=== PATIENT | female | born 1955 | race Caucasian/White ===

== ENCOUNTER 2021-02-02 10:11 | Outpatient (REF) | payer OTHER, SELFPAY ==
[2021-02-02 13:57] LABS: MANUAL DIFF FLAG NO
[2021-02-02 14:11] LABS: Basophils Absolute Auto 0.1 X10*3/uL (0.0-0.2); Basophils Percent Auto 0.9 % (0-2); Eosinophils Absolute Auto 0.4 X10*3/uL (0.0-0.4); Eosinophils Percent Auto 7.1 % (0-4); Hematocrit 41.6 % (37.0-47.0); Hemoglobin 13.3 g/dl (12.0-16.0); Imm Gran Abs Auto 0.01 X10*3/uL (0.00-0.03); Imm Gran Pct Auto 0.2 % (0.0-0.4); Lymphocytes Absolute Auto 1.4 X10*3/uL (1.2-4.9); Lymphocytes Percent Auto 26.2 % (20-40); Mean Corpuscular Hemoglobin 28.6 pg (27.0-33.0); Mean Corpuscular Volume 89.5 fL (80.0-98.0); Mean Platelet Volume 10.9 fL (9.4-12.3); Monocytes Absolute Auto 0.6 X10*3/uL (0.1-1.2); Monocytes Percent Auto 11.4 % (2-11); Neutrophils Absolute Auto 2.9 x10*3/uL (2.0-8.3); Neutrophils Percent Auto 54.2 % (45-73); Platelet Count 241 X10*3/uL (160-400); Red Blood Count 4.65 X10*6/uL (4.20-5.50); Red Cell Distribution Width 13.6 % (11.0-16.0); White Blood Count 5.4 X10*3/uL (4.8-10.8)
[2021-02-02 14:17] LABS: INTERNATIONAL NORM RATIO 0.9 (0.9-1.1); Prothrombin Time 10.4 SEC (9.9-13.0)
[2021-02-02 14:19] LABS: Partial Thromboplastin Time 37.6 SEC (24.1-38.0)
[2021-02-02 14:29] LABS: Alanine Aminotransferase 41 U/L (0-31); Albumin Level 4.2 g/dL (3.5-5.0); Alkaline Phosphatase 336 U/L (39-117); Aspartate Amino Transferase 48 U/L (5-31); Bilirubin Direct 0.2 mg/dL (0.0-0.5); Bilirubin Total 0.6 mg/dL (0.0-1.0); Gamma Glutamyl Transpeptidase 593 U/L (7-33); Total Protein 7.4 g/dL (6.5-8.0)
[2021-02-04 20:27] LABS: Anti Nuclear Antibody Screen POSITIVE (NEGATIVE)
[2021-02-07 13:41] LABS: Smooth Muscle Antibody 21 U (<20)
[2021-02-12 15:56] LABS: Mitochondrial Antibodies POSITIVE (NEGATIVE)
== END 2021-02-02 10:12 | disposition home or self-care (01) ==
LOC: HO.10HDL 10:11
PROVIDERS: Visit Provider Internal Medicine
DX: R74.8 Abnormal levels of other serum enzymes (principal); K75.4 Autoimmune hepatitis
CPT/HCPCS: 36415; 80076; 82977; 85025; 85610; 85730; 86038; 86039; 86255; 86256

== ENCOUNTER 2021-03-02 08:05 | Day surgery (SDC) | payer OTHER, SELFPAY ==
--- NOTE | ~2021-03-02 | US_ITS ---
EXAMINATION: US COMPLETE ABDOMEN WITH LIVER ELASTOGRAPHY CLINICAL INFORMATION: Elevated alkaline phosphatase. Autoimmune hepatitis. COMPARISON: March 12, 2008 TECHNIQUE: Real-time imaging of the abdominal viscera. Noninvasive ultrasound liver fibrosis assessment is performed using Bjorn ElastPQ point quantification shear wave elastography (2D-SWE) with a C5-2 MHz transducer. Multiple elastography samples are obtained. FINDINGS: PANCREAS: Normal. The visualized pancreatic head and body are normal in appearance. The remainder of the pancreas is obscured from visualization by the overlying bowel gas. ABDOMINAL AORTA: The proximal, middle, and distal aortic segments are normal in caliber. Calcified plaque is seen throughout. INFERIOR VENA CAVA: Visualized portions are normal. LIVER: There is some diffusely increased echogenicity present consistent with hepatocellular disease/fatty infiltration. The right lobe measures 13.0 cm in length. The left lobe measures 10.9 cm in length. Portal flow is hepatopedal Shear wave liver elastography median stiffness is 1.7 m/s (reference: normal median stiffness is 1.3 m/s or less). IQR/median stiffness to assess sampling precision is 0.12 (reference: good quality data set is IQR/median stiffness of 0.15 or less). GALLBLADDER: Normal. The gallbladder is physiologically distended without evidence of stones, sludge, polyps, wall thickening or pericholecystic fluid. COMMON BILE DUCT: Normal in caliber measuring 0.3 cm in diameter. RIGHT KIDNEY: Normal. No hydronephrosis. No renal calculi or solid focal parenchymal lesions. The kidney measures 13.5 cm in maximum dimension. There is a 1.5 cm midpole cyst with septation present. LEFT KIDNEY: Normal. No hydronephrosis. No renal calculi or focal parenchymal lesions. The kidney measures 11.8 cm in maximum dimension. SPLEEN: Normal. The spleen measures 8.5 cm in maximum dimension. FREE FLUID: None. US/US abdomen comp w elastography IMPRESSION: 1. Increased hepatic echogenicity consistent with hepatocellular disease/fatty infiltration. 2. Liver elastography: Measurements are suggestive of compensated advanced chronic liver disease but need further test for confirmation. 3. Right renal cyst. REFERENCE: Society of Radiologists in Ultrasound Liver Stiffness Thresholds (2020): LIVER STIFFNESS THRESHOLDS: *Liver Stiffness equal or less than 1.3 m/s: High probability of being normal. *Liver Stiffness less than 1.7 m/s: In the absence of other known clinical signs, rules out compensated advanced chronic liver disease. *Liver Stiffness 1.7-2.1 m/s: Suggestive of compensated advanced chronic liver disease but need further test for confirmation. *Liver Stiffness over 2.1 m/s: Rules in compensated advanced chronic liver disease. *Liver Stiffness over 2.4 m/s: Suggestive of clinically significant portal hypertension. QUALITY OF DATA SET: *IQR/Median value equal or less than 0.15 implies a quality data set. *IQR/Median value over 0.15 implies a poor quality data set. SIGNIFICANT CHANGE FROM PRIOR EXAM: Significant change if liver stiffness measurement is 10% or greater from prior exam. OTHER CONSIDERATIONS: The stage of liver fibrosis may be overestimated in the setting of acute hepatitis, liver inflammation, elevated liver function tests, hepatic vascular congestion, obstructive cholestasis, non-fasting state, and infiltrative diseases such as amyloidosis and lymphoma. In some patients with NAFLD, the liver stiffness thresholds for compensated advanced chronic liver disease may be lower. In causes other than viral hepatitis and NAFLD, liver stiffness thresholds are not well established.
--- NOTE | ~2021-03-02 | US_ITS ---
EXAMINATION: US GUIDED BIOPSY, LIVER CLINICAL INFORMATION: Autoimmune hepatitis. Elevated liver function tests. COMPARISON: None TECHNIQUE: Following explaining the ultrasound-guided liver biopsy procedure, and the benefits and risks, a written consent was obtained. The patient was placed supine and preliminary ultrasound imaging was obtained. An optimal site was selected along the right lateral upper abdomen intercostal space and marked. The marked site was cleaned and draped in usual sterile manner. 1% lidocaine was injected at the puncture site. Through a small skin incision, a 20-gauge short guide needle was inserted into the right hepatic lobe. Coaxially, a 20-gauge needle was advanced into the liver while respiration was suspended and a 3 pass core biopsy was performed. After achieving an adequate amount of tissue, the guide needle was withdrawn and complete hemostasis achieved at the puncture site. A sterile dressing was applied post procedure. There was no bleeding. IV conscious sedation with Versed and fentanyl was administered and the patient was monitored during the exam. FINDINGS: The liver is slightly echogenic but no focal lesion is seen. Approximately a 3 pass core biopsy of the right hepatic lobe was performed and sent to the lab in formalin. US/US biopsy liver IMPRESSION: Successful ultrasound-guided core liver biopsy performed.
[2021-03-02 08:17] VITALS: BMI 17.4
[2021-03-02 08:30] LABS: MANUAL DIFF FLAG NO
[2021-03-02 08:33] LABS: Basophils Absolute Auto 0.1 X10*3/uL (0.0-0.2); Basophils Percent Auto 1.3 % (0-2); Eosinophils Absolute Auto 0.4 X10*3/uL (0.0-0.4); Eosinophils Percent Auto 7.1 % (0-4); Hematocrit 42.5 % (37.0-47.0); Hemoglobin 13.6 g/dl (12.0-16.0); Imm Gran Abs Auto 0.01 X10*3/uL (0.00-0.03); Imm Gran Pct Auto 0.2 % (0.0-0.4); Lymphocytes Absolute Auto 1.2 X10*3/uL (1.2-4.9); Lymphocytes Percent Auto 22.4 % (20-40); Mean Corpuscular Volume 90.6 fL (80.0-98.0); Monocytes Absolute Auto 0.7 X10*3/uL (0.1-1.2); Monocytes Percent Auto 12.3 % (2-11); Neutrophils Percent Auto 56.7 % (45-73); Platelet Count 241 X10*3/uL (160-400); Red Blood Count 4.69 X10*6/uL (4.20-5.50); Red Cell Distribution Width 13.7 % (11.0-16.0); White Blood Count 5.4 X10*3/uL (4.8-10.8)
[2021-03-02 08:48] LABS: INTERNATIONAL NORM RATIO 0.9 (0.9-1.1); Prothrombin Time 10.3 SEC (9.9-13.0)
[2021-03-02 10:43] VITALS: BP 120/63; PULSE 57; RESP 16; TEMP 36.7; O2SAT 97
[2021-03-02 10:58] VITALS: BP 130/74; PULSE 56; RESP 16; O2SAT 96
[2021-03-02 11:13] VITALS: BP 129/77; PULSE 58; RESP 16; O2SAT 97
[2021-03-02 11:28] VITALS: BP 133/82; PULSE 57; RESP 16; O2SAT 97
[2021-03-02 11:58] VITALS: BP 137/64; PULSE 57; RESP 16; O2SAT 97
[2021-03-02 12:13] VITALS: BP 110/64; PULSE 54; RESP 16; TEMP 36.1; O2SAT 97
== END 2021-03-02 12:19 | disposition home or self-care (01) ==
PROVIDERS: Radiology Diagnostic Radiology; PCP Nurse Practitioner Family; Visit Provider Internal Medicine
DX: R74.8 Abnormal levels of other serum enzymes (principal); K75.4 Autoimmune hepatitis; Z79.82 Long term (current) use of aspirin; F32.9 Major depressive disorder, single episode, unspecified; Z79.899 Other long term (current) drug therapy; F17.210 Nicotine dependence, cigarettes, uncomplicated
CPT/HCPCS: 36415; 47000; 76705; 76942; 76981; 85025; 85610; 85730; 88307; 88313; 88342; 99152; J2250; J3010

== ENCOUNTER 2021-04-26 09:49 | Outpatient (REF) | payer OTHER, SELFPAY ==
[2021-04-26 12:31] LABS: Alanine Aminotransferase 21 U/L (0-31); Albumin Level 4.1 g/dL (3.5-5.0); Alkaline Phosphatase 141 U/L (39-117); Aspartate Amino Transferase 30 U/L (5-31); Bilirubin Direct 0.2 mg/dL (0.0-0.5); Bilirubin Total 0.3 mg/dL (0.0-1.0); Total Protein 7.2 g/dL (6.5-8.0)
[2021-04-28 13:32] LABS: Anti Nuclear Antibody Screen NEGATIVE (NEGATIVE)
== END 2021-04-26 09:50 | disposition home or self-care (01) ==
LOC: HO.HMGCLDS 09:49
PROVIDERS: Visit Provider Internal Medicine
DX: K74.3 Primary biliary cirrhosis (principal)
CPT/HCPCS: 36415; 80076; 86038; 86039

== ENCOUNTER 2021-08-02 13:05 | Outpatient (REF) | payer OTHER, SELFPAY ==
--- NOTE | ~2021-08-02 | XR_ITS ---
EXAMINATION: XR CHEST CLINICAL INFORMATION: Cough unspecified. COMPARISON: None TECHNIQUE: 2 views of the chest were obtained. FINDINGS: Support devices: Left-sided single-lead pacemaker in good position. There is generalized hyperinflation. Mild biapical pleural thickening/scarring is seen. There are no pleural effusions. The heart and mediastinal structures are unremarkable. XR/XR chest 2V IMPRESSION: No acute cardiopulmonary process.
[2021-08-02 13:33] LABS: Binax Internal Control QC Valid; Binax Now Covid-19 Ag Negative (Negative)
== END 2021-08-02 13:06 | disposition home or self-care (01) ==
LOC: HO.HMGCLDS 13:05
DX: Z20.822 Contact with and (suspected) exposure to COVID-19 (principal); R05.9 Cough, unspecified
CPT/HCPCS: 71046; 87811; C9803

== ENCOUNTER 2021-12-09 07:45 | Outpatient (REF) | payer OTHER, SELFPAY ==
--- NOTE | ~2021-12-09 | CT_ITS ---
EXAMINATION: CT CHEST WITH CONTRAST CLINICAL INFORMATION: Abnormal finding of CT scan lung COMPARISON: Previous chest x-ray July 2021 TECHNIQUE: Multidetector volumetric CT imaging of the chest was obtained after the administration of 65 mL of Omnipaque 350 intravenous contrast without immediate adverse reactions. Axial MIP volume rendering provided. Sagittal and coronal reformatted images were obtained. This CT examination was performed using dose optimization techniques as appropriate, variously including the following: *Automated exposure control *Adjustment of mA and/or kV according to patient size (this includes techniques or standardized protocols for targeted exams where dose is matched to indication/reason for exam; i.e. extremities or head) *Use of iterative reconstruction technique DLP: 66 mGy-cm FINDINGS: LUNGS: There is bronchial wall thickening and bronchial soft tissue opacification seen at the lung bases. There is an irregularly-shaped density in the left lower lobe. This measures approximately 6 x 3 cm in transverse and longitudinal dimension and 1 cm in AP dimension. Some of this appears to correspond to bronchial soft tissue opacification or mucus plugging. Infectious, inflammatory and neoplastic processes should be considered. There is evidence of paraseptal emphysema. There is biapical pleural and parenchymal scarring. There is a 3 mm calcified left lower lobe nodule axial image 55 series 3. MEDIASTINUM: There is a left subclavian pacemaker defibrillator device with tip projecting over the right ventricular apex. Normal heart size. No pericardial effusion. No enlarged hilar or mediastinal lymph nodes. Normal caliber thoracic aorta. CORONARY ARTERY CALCIFICATION: None visualized on this study. PLEURA: There is no pleural effusion. No pleural mass or thickening. AXILLA: No lymphadenopathy. UPPER ABDOMEN: Unremarkable OSSEOUS STRUCTURES: Unremarkable. CT/CT chest w IV con IMPRESSION: 6 x 3 x 1 cm density in the left lower lobe. Some of this appears to correspond to bronchial soft tissue opacification or mucus plugging. Infectious inflammatory and neoplastic processes should be considered. Comparison with old outside exams if available recommended. If there are clinical symptoms to suggest infection, short-term follow-up exam following antibiotic treatment would be recommended. Otherwise PET/CT scan or tissue sampling should be considered. Emphysema. Bibasilar airways disease. Fleischner guidelines were followed.
[2021-12-09] MEDS: iohexoL 350 MG/ML 100 ML INFUS..BTL IV (09:30)
[2021-12-10 08:35] LABS: Creatinine POC 0.7 mg/dL (0.5-1.4); GFR POC > 60
== END 2021-12-09 07:46 | disposition home or self-care (01) ==
LOC: HO.CT 07:45
PROVIDERS: PCP Nurse Practitioner Family; Visit Provider Internal Medicine
DX: R91.8 Other nonspecific abnormal finding of lung field (principal); J44.9 Chronic obstructive pulmonary disease, unspecified; R59.0 Localized enlarged lymph nodes; R91.1 Solitary pulmonary nodule; F17.200 Nicotine dependence, unspecified, uncomplicated; Z71.6 Tobacco abuse counseling
CPT/HCPCS: 71260; 82565; 94618; Q9967

== ENCOUNTER 2021-12-21 12:46 | Outpatient (REF) | payer OTHER, SELFPAY ==
--- NOTE | ~2021-12-21 | PE_ITS ---
EXAMINATION: Fluorine-18 FDG PET/CT Scan CLINICAL INDICATION: Initial treatment management. Pulmonary nodule, diagnosis. PROCEDURE: 60 minutes following the intravenous administration of 14.1 mCi of fluorine 18 FDG, images from the base of the skull to the mid thighs were obtained using a combined PET/CT scanner with CT scan based attenuation correction. No oral contrast was administered. No intravenous contrast was administered. Transverse, coronal, sagittal, and volume reconstruction projections were obtained. The patient's blood glucose as determined by a finger stick, was 97 mg/dl immediately prior to injection. Total CT exam dose-length product 193.36 mGy-cm * These CT images were obtained using dose optimization techniques as appropriate, variously including the following: Automated exposure control * Adjustment of mA and/or kV according to patient size (this includes techniques or standardized protocols for targeted exams where dose is matched to indication/reason for exam; i.e. extremities or head) * Use of iterative reconstruction technique COMPARISON: No previous PET/CT scan is available for comparison. CT scan of the chest dated 12/09/2021 is available for comparison. FINDINGS: (Slice numbers described in this report are numbered superiorly to inferiorly with slice #1 in the head) NECK AND VISUALIZED HEAD: No foci of abnormal FDG activity are noted. The distribution of FDG activity is physiological. There is no cervical lymphadenopathy. THORAX: There is an irregular pleural-based density that extends superomedially from the posterolateral pleura of the left lower lobe that measures approximately 2.9 x 0.7 cm in largest transverse dimensions and approximately 3.7 cm cephalocaudad. This shows weak FDG activity, SUVmax 1.2, slice 124/267. This appears smaller and less dense than on the 12/09/[address] scan, but the difference in appearance may be due to the difference in CT technique on these nondiagnostic CT images which were not performed with a breath-hold or intravenous contrast. An additional 0.3 cm calcified left lower lobe nodule is visualized, slice 128/267, unchanged from 12/09/2021 and much too small to be characterized on the FDG PET images. Some mild scarring or atelectasis is present in the anterolateral aspect of the lingula with no associated abnormal FDG activity. There is also biapical scarring, also with no abnormal FDG activity. No additional pulmonary nodules are visualized. No additional foci of abnormal FDG activity are present in the chest. There is no pleural or pericardial fluid, or pneumothorax. There is no mediastinal, supraclavicular, or axillary lymphadenopathy. A left-sided pacemaker and associated leads are noted. ABDOMEN AND PELVIS: No foci of abnormal FDG activity are present in the abdomen or pelvis. There is mild FDG activity throughout the gastrointestinal tract without a suspicious focal component, likely physiological. There is diverticulosis without evidence of diverticulitis. The hollow viscera are otherwise unremarkable. The liver is moderately enlarged, but is otherwise unremarkable. The gallbladder, spleen, kidneys, adrenal glands, and pancreas appear unremarkable, although there is minimal intra-abdominal fat limiting evaluation of these nondiagnostic CT images. The pelvic organs are unremarkable. There is no retroperitoneal, mesenteric, pelvic or inguinal lymphadenopathy. MUSCULOSKELETAL: No foci of abnormal FDG activity are present in the osseous structures. A mild thoracolumbar scoliosis is present with lumbar convexity to the right. There are mild degenerative changes in the spine. No suspicious sclerotic or lytic lesions are visualized. VASCULAR: Vascular calcifications are noted. PET/PET CT fusion skull to thigh IMPRESSION: 1. A posterolateral left lower lobe opacity shows only weak FDG activity. This suggests a benign etiology. However because approximately 10% of pulmonary malignancies demonstrate no abnormal FDG activity, if biopsy of this lesion is not obtained, followup with diagnostic CT scan in 6 months is recommended. 2. Hepatomegaly. 3. No additional abnormalities suspicious for metastatic or other malignant lesions are noted.
== END 2021-12-21 12:47 | disposition home or self-care (01) ==
LOC: HO.PET 12:46
PROVIDERS: Visit Provider Hospitalist
DX: Z13.89 Encounter for screening for other disorder (principal)

== ENCOUNTER 2022-01-21 16:02 | Outpatient (REF) | payer OTHER, SELFPAY ==
[2022-01-21 16:25] LABS: MANUAL DIFF FLAG NO
[2022-01-21 17:30] LABS: Appearance Urine Clear; Color Urine Yellow; Glucose Urine UA 500 mg/dL (Negative); Leukocyte Esterase Urine Small (1+) (Negative); Nitrite Urine Negative (Negative); UMIC TRIGGER UA YES; Urine Blood Negative (Negative); Urine Ketones Negative (Negative); Urine Protein Negative (Neg-Trace)
[2022-01-21 17:32] LABS: Basophils Absolute Auto 0.1 X10*3/uL (0.0-0.2); Basophils Percent Auto 1.1 % (0-2); Eosinophils Absolute Auto 0.1 X10*3/uL (0.0-0.4); Eosinophils Percent Auto 1.9 % (0-4); Hematocrit 39.9 % (37.0-47.0); Hemoglobin 12.9 g/dl (12.0-16.0); Imm Gran Abs Auto 0.01 X10*3/uL (0.00-0.03); Imm Gran Pct Auto 0.2 % (0.0-0.4); Lymphocytes Absolute Auto 1.6 X10*3/uL (1.2-4.9); Lymphocytes Percent Auto 27.6 % (20-40); Mean Corpuscular HGB Conc 32.3 g/dl (31.0-35.0); Mean Corpuscular Hemoglobin 28.8 pg (27.0-33.0); Mean Corpuscular Volume 89.1 fL (80.0-98.0); Mean Platelet Volume 10.6 fL (9.4-12.3); Monocytes Absolute Auto 0.6 X10*3/uL (0.1-1.2); Monocytes Percent Auto 10.2 % (2-11); Neutrophils Absolute Auto 3.4 x10*3/uL (2.0-8.3); Platelet Count 189 X10*3/uL (160-400); Red Blood Count 4.48 X10*6/uL (4.20-5.50); Red Cell Distribution Width 13.6 % (11.0-16.0); White Blood Count 5.7 X10*3/uL (4.8-10.8)
[2022-01-21 17:42] LABS: Bacteria Urine None Seen (None Seen); Hyaline Casts Urine 0-2 /LPF (0-2); RBC Urine 0-2 /HPF (0-2); Squamous Epithelial Cell Urine 0-2 /HPF (0-2); WBC Urine 0-5 /HPF (0-5)
[2022-01-21 18:09] LABS: Alanine Aminotransferase 25 U/L (0-31); Albumin Level 4.4 g/dL (3.5-5.0); Alkaline Phosphatase 125 U/L (39-117); Anion Gap 11 (12-20); Aspartate Amino Transferase 41 U/L (5-31); Bilirubin Total 0.3 mg/dL (0.0-1.0); Blood Urea Nitrogen 15 mg/dL (9-16); Calcium 9.2 mg/dL (8.4-10.2); Carbon Dioxide 29 mmol/L (22-29); Chloride 103 mmol/L (96-108); Estimated Glomerular Filt Rate > 60; Gamma Glutamyl Transpeptidase 81 U/L (7-33); Glucose Random 81 mg/dL (60-115); Lactate Dehydrogenase 441 U/L (122-220); Potassium 3.9 mmol/L (3.3-5.1); Sodium 139 mmol/L (135-145); TSH reflex Free T4 1.67 uIU/mL (0.32-4.0); Total Protein 7.1 g/dL (6.5-8.0)
[2022-01-21 18:14] LABS: Erythrocyte Sedimentation Rate 11 MM/HR (0-20)
[2022-01-21 18:32] LABS: Creatinine Urine 19.06 mg/dL; Total Protein Urine Random < 7 mg/dL (<12)
[2022-01-24 08:05] LABS: HBS Num1 14.35 mIU/mL (0-7.99); HBc Num1 0.14 S/CO (0.00-0.79); HBsAGNum1 0.38 S/CO (0.00-0.99); Hepatitis A Antibody IgM 0.12 Index (0-0.79); Hepatitis B Core Antibody Nonreactive (Nonreactive); Hepatitis B Surface Antigen Negative (Negative); ~HepC Num1 0.14 S/CO (0.00-0.79); ~Hepatitis A Antibody IgM Nonreactive (Nonreactive); ~Hepatitis B Surface Antibody REACTIVE (Nonreactive); ~Hepatitis C Antibody Nonreactive (Nonreactive)
[2022-01-24 15:19] LABS: Prot Elec - Albumin 4.4 g/dL (3.8-4.8); Prot Elec - Alpha1 0.3 g/dL (0.2-0.3); Prot Elec - Alpha2 0.7 g/dL (0.5-0.9); Prot Elec - Beta 1 0.4 g/dL (0.4-0.6); Prot Elec - Beta 2 0.3 g/dL (0.2-0.5); Prot Elec - Gamma 0.9 g/dL (0.8-1.7); Prot Elec - Total Protein 6.9 g/dL (6.1-8.1)
[2022-01-24 19:33] LABS: Cardiolipin IgG Ab <2.0 GPL-U/mL
[2022-01-25 07:53] LABS: TS Negative Control Passed; TS Panel A 1; TS Panel B 0; TS Positive Control Passed; TSpotTB Negative (Negative)
[2022-01-25 11:18] LABS: IgA 91 mg/dL (70-320); IgG 980 mg/dL (600-1540)
[2022-01-25 12:33] LABS: Anti Nuclear Antibody Screen POSITIVE (NEGATIVE)
[2022-01-25 13:34] LABS: Antibody to SS-A Antigen <1.0 NEG AI (<1.0 NEG); Myeloperoxidase Antibody <1.0 AI; Smith Protein <1.0 NEG AI (<1.0 NEG)
[2022-01-27 05:28] LABS: Beta-2 Glycoprotein IgA <2.0 U/mL (<20.0); Beta-2 Glycoprotein IgG <2.0 U/mL (<20.0); Beta-2 Glycoprotein IgM <2.0 U/mL (<20.0)
[2022-01-27 12:19] LABS: Vitamin D 25-OH, D2 <4 ng/mL; Vitamin D 25-OH, D3 41 ng/mL; Vitamin D 25-OH, Total 41 ng/mL (30-100)
[2022-01-28 01:14] LABS: VITAMIN D (1,25 OH) D3 49 pg/mL; Vit D (1,25-Dihydroxy) Total 49 pg/mL (18-72); Vitamin D (1,25 OH) D2 <8 pg/mL
[2022-01-28 15:09] LABS: Anti DNA DS Antibody 14 IU/mL; Antibody to SS-B Antigen <1.0 NEG AI (<1.0 NEG); Complement C3 117 mg/dL (83-193); DNAds, Crithidia Antibody Negative (Negative); IgM 78 mg/dL (50-300); SM/Ribonucleoprotein Ab <1.0 NEG AI (<1.0 NEG); Thyroglobulin Antibodies <1 IU/mL (< or = 1); Thyroid Peroxidase Antibodies <1 IU/mL (<9)
[2022-01-30 15:02] LABS: PTT (LAC) Screen 35 sec (<=40)
[2022-01-30 18:39] LABS: Angiotensin Converting Enzyme 48.2 U/L (9-67)
[2022-01-31 01:38] LABS: Aldolase 13.4 U/L (<=8.1)
[2022-01-31 19:17] LABS: Cytosolic 5'nuc 1A Ab IgG 7 Units; Ej Ab <11 SI (<11); HMGCR Ab IgG <2 CU (<20); Jo-1 Ab <11 SI (<11); MDA5 Ab <11 SI (<11); Mi-2 alpha Ab <11 SI (<11); Mi-2 beta Ab <11 SI (<11); NXP-2 (MJ) Ab <11 SI (<11); Oj Ab <11 SI (<11); Pl-12 Ab <11 SI (<11); Pl-7 Ab <11 SI (<11); Proteinase 3 PR3 Antibodies <1.0 AI; SRP Ab <11 SI (<11); TIF1 gamma Ab <11 SI (<11)
[2022-02-01 15:08] LABS: Cardiolipin IgM Ab <2.0 MPL-U/mL
== END 2022-01-21 16:03 | disposition home or self-care (01) ==
LOC: HO.LAB 16:02
PROVIDERS: PCP Nurse Practitioner Family; Visit Provider Student in an Organized Health Care Education/Training Program
DX: G72.9 Myopathy, unspecified (principal); R53.83 Other fatigue; R76.8 Other specified abnormal immunological findings in serum; R91.1 Solitary pulmonary nodule; Z13.21 Encounter for screening for nutritional disorder; Z11.7 Encounter for testing for latent tuberculosis infection; Z11.59 Encounter for screening for other viral diseases
CPT/HCPCS: 80053; 81001; 82085; 82164; 82306; 82550; 82652; 82784; 82977; 83516; 83520; 83615; 84156; 84165; 84182; 84443; 85025; 85549; 85597; 85613; 85652; 85730; 86021; 86038; 86039; 86140; 86146; 86147; 86160; 86225; 86235; 86255; 86334; 86376; 86481; 86704; 86706; 86709; 86800; 86803; 87340

== ENCOUNTER 2022-02-10 13:13 | Outpatient (REF) | payer OTHER, SELFPAY ==
[2022-02-10 14:34] LABS: Rheumatoid Factor < 13.0 IU/mL (<15.0)
[2022-02-15 12:29] LABS: Cyclic Citrullinated Peptide <16 UNITS
[2022-02-15 14:44] LABS: Immunoglobulin G Subclass 1 467 mg/dL (382-929); Immunoglobulin G Subclass 2 222 mg/dL (241-700); Immunoglobulin G Subclass 3 >220 mg/dL (22-178); Immunoglobulin G Subclass 4 2.5 mg/dL (4-86); Immunoglobulin G Total 857 mg/dL (600-1540)
[2022-02-17 13:02] LABS: Centromere Protein A Ab <11 SI (<11); Centromere Protein B Ab <11 SI (<11); Fibrillarin Ab <11 SI (<11); PM SCL 100 Ab <11 SI (<11); PM SCL 75 Ab <11 SI (<11); RNA Polymerase III RP11 Ab <11 SI (<11); RNA Polymerase III RP155 Ab <11 SI (<11); SCL-70 Extractable Nuclear Ab <11 SI (<11); Th-To Ab <11 SI (<11); U1 SNRNP RNP 70KD <11 SI (<11); U1 SNRNP RNP A <11 SI (<11); U1 SNRNP RNP C <11 SI (<11)
== END 2022-02-10 13:14 | disposition home or self-care (01) ==
LOC: HO.LAB 13:13
PROVIDERS: PCP Nurse Practitioner Family; Visit Provider Student in an Organized Health Care Education/Training Program
DX: G72.9 Myopathy, unspecified (principal); D89.89 Other specified disorders involving the immune mechanism, not elsewhere classified; R76.8 Other specified abnormal immunological findings in serum
CPT/HCPCS: 36415; 82784; 84182; 86200; 86235; 86431

== ENCOUNTER 2022-02-21 14:06 | Outpatient (REF) | payer OTHER, SELFPAY ==
--- NOTE | ~2022-02-21 | MR_ITS ---
EXAMINATION: MR FEMUR WITHOUT AND WITH CONTRAST, LEFT CLINICAL INFORMATION: Myopathy. COMPARISON: Most recent PET/CT dated 12/21/2021. TECHNIQUE: Multisequence MR imaging of the left femur was obtained before and after the IV administration of 5 mL Gadavist contrast on a high-field strength scanner. FINDINGS: BONE: No acute osseous injury. No stress reaction, fracture, or avascular necrosis. No concerning lytic or blastic osseous lesion. No significant postcontrast marrow enhancement. MUSCLES/TENDONS: Minimal increased T2 signal adjacent to the proximal left hamstring tendon consistent with minimal tendinosis. No transverse tendon tear or tendon retraction. No significant muscle edema to suggest an acute infectious or inflammatory myositis. No significant muscle atrophy. SOFT TISSUES: No abnormal soft tissue mass, fluid collection, or enhancement. MR/MR femur LT wo/w con IMPRESSION: 1. Minimal proximal left hamstring tendinosis. No transverse tendon tear or tendon retraction. 2. No evidence of acute infectious or inflammatory myositis. 3. No acute osseous abnormality. No stress reaction, fracture, or avascular necrosis. 4. No abnormal soft tissue mass, fluid collection, or enhancement.
== END 2022-02-21 14:07 | disposition home or self-care (01) ==
LOC: HO.MRI 14:06
PROVIDERS: PCP Nurse Practitioner Family; Visit Provider Student in an Organized Health Care Education/Training Program
DX: G72.9 Myopathy, unspecified (principal)
CPT/HCPCS: 73720; A9585

== ENCOUNTER → 2022-03-08 11:07 | Outpatient (BNVA) | payer OTHER, SELFPAY | PROVIDERS: PCP Nurse Practitioner Family; Visit Provider Student in an Organized Health Care Education/Training Program | DX: Z13.89 Encounter for screening for other disorder (principal) ==

== ENCOUNTER 2022-03-15 10:23 | Outpatient (REF) | payer OTHER, SELFPAY ==
[2022-03-16 05:20] LABS: HIV AB/AG Nonreactive (Nonreactive); HIV Num 1 0.07 S/CO (0.00-0.99)
[2022-03-17 01:15] LABS: Lyme Abs Screen <0.90 index
[2022-03-21 21:52] LABS: Treponema pallidum Ab FTA ABS Nonreactive (Nonreactive)
== END 2022-03-15 10:24 | disposition home or self-care (01) ==
LOC: HO.LAB 10:23
PROVIDERS: PCP Nurse Practitioner Family; Visit Provider Psychiatry & Neurology Neurology
DX: Z11.4 Encounter for screening for human immunodeficiency virus [HIV] (principal); G62.9 Polyneuropathy, unspecified
CPT/HCPCS: 36415; 86617; 86618; 86780; 87389

== ENCOUNTER 2022-04-14 10:41 | Outpatient (REF) | payer OTHER, SELFPAY ==
[2022-04-14 10:54] LABS: MANUAL DIFF FLAG NO
[2022-04-14 12:53] LABS: Basophils Percent Auto 0.4 % (0-2); Eosinophils Absolute Auto 0.1 X10*3/uL (0.0-0.4); Eosinophils Percent Auto 0.7 % (0-4); Hemoglobin 15.2 g/dl (12.0-16.0); Imm Gran Abs Auto 0.02 X10*3/uL (0.00-0.03); Imm Gran Pct Auto 0.3 % (0.0-0.4); Lymphocytes Absolute Auto 1.5 X10*3/uL (1.2-4.9); Lymphocytes Percent Auto 21.7 % (20-40); Mean Corpuscular HGB Conc 31.7 g/dl (31.0-35.0); Mean Corpuscular Hemoglobin 27.8 pg (27.0-33.0); Mean Corpuscular Volume 87.9 fL (80.0-98.0); Mean Platelet Volume 10.7 fL (9.4-12.3); Monocytes Absolute Auto 0.5 X10*3/uL (0.1-1.2); Monocytes Percent Auto 7.1 % (2-11); Neutrophils Absolute Auto 4.8 x10*3/uL (2.0-8.3); Neutrophils Percent Auto 69.8 % (45-73); Platelet Count 168 X10*3/uL (160-400); Red Blood Count 5.46 X10*6/uL (4.20-5.50); Red Cell Distribution Width 14.1 % (11.0-16.0); White Blood Count 6.9 X10*3/uL (4.8-10.8)
[2022-04-14 14:09] LABS: Alanine Aminotransferase 26 U/L (0-31); Albumin Level 4.5 g/dL (3.5-5.0); Alkaline Phosphatase 78 U/L (39-117); Anion Gap 19 (12-20); Aspartate Amino Transferase 39 U/L (5-31); Blood Urea Nitrogen 15 mg/dL (9-16); C Reactive Protein 1.43 mg/dL (< or = 0.50); Calcium 9.3 mg/dL (8.4-10.2); Carbon Dioxide 27 mmol/L (22-29); Chloride 100 mmol/L (96-108); Estimated Glomerular Filt Rate > 60; Glucose Random 71 mg/dL (60-115); Lactate Dehydrogenase 690 U/L (122-220); Potassium 4.7 mmol/L (3.3-5.1); Sodium 141 mmol/L (135-145); Total Protein 7.3 g/dL (6.5-8.0)
[2022-04-20 06:29] LABS: Aldolase 12.4 U/L (<=8.1)
== END 2022-04-14 10:42 | disposition home or self-care (01) ==
LOC: HO.LAB 10:41
PROVIDERS: PCP Nurse Practitioner Family; Visit Provider Student in an Organized Health Care Education/Training Program
DX: G72.9 Myopathy, unspecified (principal)
CPT/HCPCS: 36415; 80053; 82085; 82550; 83615; 85025; 86140

== ENCOUNTER → 2022-04-15 08:26 | Outpatient (BNVA) | payer OTHER, SELFPAY | PROVIDERS: PCP Nurse Practitioner Family; Referring Provider Psychiatry & Neurology Neurology; Visit Provider Surgery | DX: Z13.89 Encounter for screening for other disorder (principal) ==

== ENCOUNTER 2022-04-20 08:26 | Day surgery (SDC) | payer OTHER, SELFPAY ==
[2022-04-20 06:53] VITALS: BMI 15.3
[2022-04-20 08:32] VITALS: BP 138/71; PULSE 59; RESP 18; TEMP 37.1
--- NOTE | 2022-04-20 08:39 | MHC.SHP ---
Pre-Procedural Eval Section A Date of Service: 04/20/22 The patient is an INPATIENT: No The History & Physical has been completed within 30 days and I have reviewed it.: Yes Section B Chief Complaint: Myopathy, unspecified Allergies: Allergies Allergy/AdvReac Type Severity Reaction Status Date / Time No Known Allergies Allergy Verified 04/15/22 08:36 Plan I have reviewed the history and physical and performed a pertinent physical examination on my patient. No changes have occurred unless specified. Time Spent With Patient Time: Total time managing care of this patient today ____ minutes.
[2022-04-20] MEDS: Lactated Ringers 1,000 ML 50 ML IVCONT (09:08)
--- NOTE | 2022-04-20 11:46 | HO.ANESPROP2 ---
HPI - Anesthesia Eval Consult details Narrative: peripheral neuropathy, muscle nerve bx PMFSH Active Problems Active Problems: All Active Problems (Updated 03/08/22 @ 11:57 by Micah Santos MD) Cardiomyopathy (Acute) Myopathy (Acute) Fatigue (Acute) Chest pain (Acute) ROSALINO positive (Acute) Pulmonary nodule (Acute) Lymphadenopathy, mediastinal (Acute) Tobacco dependence (Acute) COPD (chronic obstructive pulmonary disease) (Acute) Past Medical History Medical History ROSALINO positive Chest pain COPD (chronic obstructive pulmonary disease) Lymphadenopathy, mediastinal Pulmonary nodule Tobacco dependence Family History Family History (Updated 04/15/22 @ 08:38 by INNA Duran) Mother Hypertension Heart disease Father Heart disease Hypertension Sister Breast cancer Family history of problems with anesthesia: No Surgical History Surgical History History of bunionectomy S/P internal cardiac defibrillator procedure History of Problems with Anesthesia: No Social History Social History Household Members: Spouse and Family Alcohol intake: current Alcohol intake frequency: does not drink Patient Tobacco Use Status: Current everyday Tobacco user Tobacco use type: Cigarette Cigarette Packs Per Day: 1 Cigarettes Per Day: 20 Years Smoked: 30 Years Are you DNR?: No Advance Directives: No Advance Directives Information Provided: Yes Meds Allergies Allergy/AdvReac Type Severity Reaction Status Date / Time No Known Allergies Allergy Verified 04/15/22 08:36 Active Medications: Current Medications Lactated Ringer's (Lr) 1,000 mls @ 50 mls/hr IVCONT .Q20H FLOYD Last Admin: 04/20/22 09:08 Dose: 50 mls/hr Home Medications Medication Instructions Recorded Confirmed Last Taken Type duloxetine 60 mg capsule,delayed 60 mg PO DAILY 08/02/21 04/19/22 History release metoprolol succinate 50 mg 50 mg PO DAILY 08/02/21 04/19/22 History tablet,extended release 24 hr sacubitril 49 mg-valsartan 51 mg 1 tab PO BID 08/02/21 04/19/22 History tablet (Entresto) cholecalciferol (vitamin D3) 25 25 mcg PO DAILY 12/09/21 04/19/22 History mcg (1,000 unit) capsule magnesium 200 mg tablet 200 mg PO DAILY 12/09/21 04/19/22 History ursodiol 250 mg tablet 250 mg PO DAILY 12/09/21 04/19/22 History vitamin B complex (B 1 tab PO DAILY 12/09/21 04/19/22 History Complex-Vitamin B12 tablet) dapagliflozin 10 mg tablet 10 mg PO DAILY 01/10/22 04/19/22 History (Farxiga) colchicine 0.6 mg capsule 0.6 mg PO DAILY 01/21/22 04/19/22 History (Mitigare) Exam Exam Date and Time: April 20, 2022 1146 Height,Weight and Vital Signs: Height 5 ft 8 in Weight 45.586 kg Last Vital Signs Temp 98.8 F 04/20/22 08:32 Pulse 59 04/20/22 08:32 Resp 18 04/20/22 08:32 BP 138/71 04/20/22 08:32 O2 Del Method 04/20/22 08:32 Airway Mallampati Class: II TM Dist: <=3cm Neck ROM: Limited Heart: rrr Lungs: cta Assessment and Plan Assessment Anesthesia Assessment: Anesthesia Plan Discussed and Chart Reviewed (Aicd in place) Final Anesthetic Review Family History of Problems with Anesthesia: No History of Problems with Anesthesia: No NPO: Yes ASA Class: IV Final Preanesthetic Review: No Changes in Pt Med Stat, Meds/Allgs Chart Reviewed, Consent Obtained/Reviewed and Anes Risks/Benef Reviewed Patient Risk: High Procedure Risk: Intermediate Assessment/Block/Sedation in SS: Assess/Block/Sedation-SS Anesthetic Plan Anesthetic Plan: MAC:, Regional Block and Agree w/ Assess. and Plan Disposition: Standard PACU
[2022-04-20 12:30] VITALS: BP 101/56; PULSE 55; RESP 12; TEMP 36.9; O2SAT 93
[2022-04-20 12:45] VITALS: BP 126/72; PULSE 57; RESP 12; O2SAT 94
[2022-04-20 13:00] VITALS: BP 134/81; PULSE 64; RESP 15; TEMP 37.2; O2SAT 95
--- NOTE | 2022-04-21 11:19 | P.OP_ITS ---
Operative Note Operative Note Date of Service: 04/21/22 Narrative: Prep diagnosis: Rule out neuromuscular disorder postop diagnosis Postop diagnosis: Same Procedure 1. Right deltoid muscle biopsy 2. Right sural nerve biopsy Anesthesia; regional Surgeon: Ross electrician's assistant: Eliane Findings uneventful muscle biopsy and sural nerve biopsies. Specimen sent for pathology instructions as fresh specimen soaked in saline 4 by 4s Procedures; patient brought to operating theater, placed on the operative table in a supine position, after adequate level of regional anesthesia had been induced, the patient was placed in left lateral decubitus position. Both the right deltoid area and the right lateral ankle were prepped and draped in usual sterile fashion. Commencing the right deltoid muscle biopsy, a longitudinal incision was made over the mid muscle and carried down through skin, subcutaneous tissue, with a deltoid muscle was identified. Two suture ligatures of 2-0 Vicryl were made proximally and distally around the desired muscle biopsy location. A generous specimen of muscles in obtain by transecting across the suture ligatures and for specimens sent to pathology per their instructions in saline soaked gauze. The wound Was irrigated, secured for hemostasis, and closed using interrupted inverted subdermal 3-0 Vicryl followed by running subcuticular 4-0 Vicryl suture. Steri-Strips and sterile dressings were applied. Wound was infiltrated 0.5% Marcaine with epinephrine a completion. Next the right sural nerve biopsy the procedure was performed by making a longitudinal incision midway between the posterior border of the lateral malleolus and fibula and the anterior border of the Achilles tendon. This is carried down through skin, subcutaneous tissue, with a lesser saphenous nerve and the sural nerve were both identified. The nerve was from the lesser saphenous vein and on appropriate length was obtained, approximately 6 cm, the sural nerve was transected 1st proximally than distally and specimen appropriately placed per instructions by pathology on a tongue depressor and Saline soak gauze per pathology instructions and sent for specimentation. Wound was irrigated, secured hemostasis, and closed using interrupted dermal 3-0 Vicryl sutures followed by Steri-Strips and sterile dressings. Wound was infiltrated with 0.5% Marcaine with epinephrine a completion. Sponge, needle, and instrument counts were reported to be correct. Patient tolerated the procedure well and emerge from anesthesia stable condition. EBL minimal
== END 2022-04-20 14:14 | disposition home or self-care (01) ==
PROVIDERS: PCP Nurse Practitioner Family; Visit Provider Surgery
PROC: (CPT 64795; principal; 2022-04-20 10:00)
PROC: (CPT 64795; 2022-04-20 10:00)
DX: G72.9 Myopathy, unspecified (principal); G62.9 Polyneuropathy, unspecified; J44.9 Chronic obstructive pulmonary disease, unspecified; R91.1 Solitary pulmonary nodule; R59.0 Localized enlarged lymph nodes; I42.9 Cardiomyopathy, unspecified; R53.83 Other fatigue; R76.8 Other specified abnormal immunological findings in serum; Z95.810 Presence of automatic (implantable) cardiac defibrillator; Z79.899 Other long term (current) drug therapy; F17.210 Nicotine dependence, cigarettes, uncomplicated
CPT/HCPCS: 64795; 20205; 88300; 88305; 88313; 88319; 88348; J0690

== ENCOUNTER → 2022-04-25 09:20 | Outpatient (BNVA) | payer OTHER, SELFPAY | PROVIDERS: PCP Nurse Practitioner Family; Visit Provider Hospitalist | DX: R06.00 Dyspnea, unspecified (principal) ==

== ENCOUNTER → 2022-04-28 09:20 | Outpatient (BNVA) | payer OTHER, SELFPAY | PROVIDERS: PCP Nurse Practitioner Family; Visit Provider Surgery | DX: S40.011A Contusion of right shoulder, initial encounter (principal) | CPT/HCPCS: 10160 ==

== ENCOUNTER 2022-05-05 07:22 | Outpatient (REF) | payer OTHER, SELFPAY ==
--- NOTE | ~2022-05-05 | CT_ITS ---
EXAMINATION: CT CHEST WITHOUT CONTRAST CLINICAL INFORMATION: Follow-up pulmonary nodule COMPARISON: Previous chest CT most recent November 2021 TECHNIQUE: Multidetector volumetric CT imaging of the chest was done. Axial MIP volume rendering provided. Sagittal and coronal reformatted images were obtained. This CT examination was performed using dose optimization techniques as appropriate, variously including the following: *Automated exposure control *Adjustment of mA and/or kV according to patient size (this includes techniques or standardized protocols for targeted exams where dose is matched to indication/reason for exam; i.e. extremities or head) *Use of iterative reconstruction technique DLP: 87 mGy-cm FINDINGS: LUNGS: Biapical pleural and parenchymal scarring. Paraseptal emphysema. 3 mm calcified right middle lobe nodule axial image 308 series 5 stable. 3 mm calcified left lower lobe nodule axial image 21 series 5 stable. 3 mm calcified left lower lobe nodule axial image 472 series 5 stable. 2 mm calcified right lower lobe nodule axial image 479 series 5 is stable. Mild airways disease with bronchial wall thickening and increased peribronchial attenuation in the lingula and right middle lobe. Previously identified irregular parenchymal density in the left lower lobe thought to represent mucus plugging has resolved. No endobronchial or endotracheal lesion. MEDIASTINUM: Left subclavian single chamber patent AICD pacemaker appears unchanged. Normal heart size. No pericardial effusion. No enlarged hilar or mediastinal lymph nodes. CORONARY ARTERY CALCIFICATION: None visualized on this study. PLEURA: There is no pleural effusion. No pleural mass or thickening. AXILLA: No lymphadenopathy. UPPER ABDOMEN: Unremarkable. OSSEOUS STRUCTURES: Unremarkable. CT/CT chest wo IV con IMPRESSION: Emphysema. Stable biapical pleural and parenchymal scarring. Stable small calcified pulmonary nodules. Mild airways disease in the right middle lobe and lingula. Resolved parenchymal density in the left lower lobe thought to represent mucus plugging compared to November 2021 exam. Fleischner guidelines were followed.
== END 2022-05-05 07:23 | disposition home or self-care (01) ==
LOC: HO.CT 07:22
PROVIDERS: Visit Provider Hospitalist
DX: R91.1 Solitary pulmonary nodule (principal)
CPT/HCPCS: 71250

== ENCOUNTER 2022-05-18 10:53 | Outpatient (REF) | payer MEDICARE, SELFPAY ==
[2022-05-18 11:58] LABS: B Type Natriuretic Peptide 105 pg/mL (<100)
[2022-05-18 12:17] LABS: Anion Gap 10 (12-20); Blood Urea Nitrogen 19 mg/dL (9-16); Calcium 9.3 mg/dL (8.4-10.2); Carbon Dioxide 31 mmol/L (22-29); Chloride 106 mmol/L (96-108); Estimated Glomerular Filt Rate > 60; Glucose Random 89 mg/dL (60-115); Potassium 4.1 mmol/L (3.3-5.1); Sodium 143 mmol/L (135-145)
== END 2022-05-18 10:54 | disposition home or self-care (01) ==
LOC: HO.LAB 10:53
PROVIDERS: PCP Nurse Practitioner Family; Visit Provider Internal Medicine Cardiovascular Disease
DX: I42.8 Other cardiomyopathies (principal); G72.9 Myopathy, unspecified
CPT/HCPCS: 36415; 80048; 83880

== ENCOUNTER → 2022-05-31 08:05 | Outpatient (BNVA) | payer MEDICARE, SELFPAY | PROVIDERS: PCP Nurse Practitioner Family; Visit Provider Student in an Organized Health Care Education/Training Program | DX: G72.9 Myopathy, unspecified (principal); J44.9 Chronic obstructive pulmonary disease, unspecified; R16.0 Hepatomegaly, not elsewhere classified; Z95.0 Presence of cardiac pacemaker | CPT/HCPCS: 99212 ==

== ENCOUNTER 2022-07-15 11:52 | Outpatient (REF) | payer MEDICARE, SELFPAY | END 2022-07-15 11:53 | disposition home or self-care (01) | LOC: HO.LAB 11:52 | PROVIDERS: Visit Provider Nurse Practitioner Family | DX: Z13.89 Encounter for screening for other disorder (principal) ==

== ENCOUNTER 2022-09-29 09:43 | Outpatient (REF) | payer MEDICARE, SELFPAY ==
[2022-09-29 10:06] LABS: MANUAL DIFF FLAG NO
[2022-09-29 10:44] LABS: Basophils Percent Auto 0.5 % (0-2); Eosinophils Absolute Auto 0.1 X10*3/uL (0.0-0.4); Eosinophils Percent Auto 1.5 % (0-4); Hematocrit 50.9 % (37.0-47.0); Hemoglobin 16.3 g/dl (12.0-16.0); Imm Gran Abs Auto 0.01 X10*3/uL (0.00-0.03); Imm Gran Pct Auto 0.2 % (0.0-0.4); Lymphocytes Absolute Auto 1.6 X10*3/uL (1.2-4.9); Lymphocytes Percent Auto 29.4 % (20-40); Mean Corpuscular Hemoglobin 28.4 pg (27.0-33.0); Mean Corpuscular Volume 88.7 fL (80.0-98.0); Mean Platelet Volume 10.6 fL (9.4-12.3); Monocytes Absolute Auto 0.5 X10*3/uL (0.1-1.2); Monocytes Percent Auto 9.3 % (2-11); Neutrophils Absolute Auto 3.3 x10*3/uL (2.0-8.3); Neutrophils Percent Auto 59.1 % (45-73); Platelet Count 210 X10*3/uL (160-400); Red Blood Count 5.74 X10*6/uL (4.20-5.50); Red Cell Distribution Width 13.5 % (11.0-16.0); White Blood Count 5.5 X10*3/uL (4.8-10.8)
[2022-09-29 10:51] LABS: INTERNATIONAL NORM RATIO 0.9 (0.9-1.1); Prothrombin Time 10.4 SEC (11.1-13.3)
[2022-09-29 11:10] LABS: Alanine Aminotransferase 22 U/L (0-31); Albumin Level 4.4 g/dL (3.5-5.0); Alkaline Phosphatase 128 U/L (39-117); Aspartate Amino Transferase 31 U/L (5-31); Bilirubin Direct 0.2 mg/dL (0.0-0.5); Bilirubin Total 0.6 mg/dL (0.0-1.0); Total Protein 7.4 g/dL (6.5-8.0)
== END 2022-09-29 09:44 | disposition home or self-care (01) ==
LOC: HO.LAB 09:43
PROVIDERS: PCP Nurse Practitioner Family; Visit Provider Internal Medicine
DX: G12.21 Amyotrophic lateral sclerosis (principal); K74.3 Primary biliary cirrhosis; R74.8 Abnormal levels of other serum enzymes
CPT/HCPCS: 36415; 80076; 85025; 85610

== ENCOUNTER 2022-11-04 11:49 | Outpatient (REF) | payer MEDICARE, SELFPAY ==
[2022-11-04 13:59] LABS: Alanine Aminotransferase 22 U/L (0-31); Albumin Level 3.6 g/dL (3.5-5.0); Alkaline Phosphatase 165 U/L (39-117); Aspartate Amino Transferase 29 U/L (5-31); Bilirubin Direct 0.2 mg/dL (0.0-0.5); Bilirubin Total 0.5 mg/dL (0.0-1.0); Total Protein 6.6 g/dL (6.5-8.0)
== END 2022-11-04 11:50 | disposition home or self-care (01) ==
LOC: HO.LAB 11:49
PROVIDERS: PCP Nurse Practitioner Family; Referring Provider Internal Medicine; Visit Provider Psychiatry & Neurology Neuromuscular Medicine
DX: G12.21 Amyotrophic lateral sclerosis (principal)
CPT/HCPCS: 36415; 80076

== ENCOUNTER 2022-12-02 15:01 | Outpatient (REF) | payer MEDICARE, SELFPAY ==
[2022-12-02 16:14] LABS: Alanine Aminotransferase 31 U/L (0-31); Albumin Level 3.9 g/dL (3.5-5.0); Alkaline Phosphatase 148 U/L (39-117); Aspartate Amino Transferase 40 U/L (5-31); Bilirubin Direct 0.1 mg/dL (0.0-0.5); Bilirubin Total 0.4 mg/dL (0.0-1.0); Total Protein 6.9 g/dL (6.5-8.0)
== END 2022-12-02 15:02 | disposition home or self-care (01) ==
LOC: HO.LABR 15:01
PROVIDERS: Visit Provider Psychiatry & Neurology Neuromuscular Medicine
DX: G12.21 Amyotrophic lateral sclerosis (principal)
CPT/HCPCS: 36415; 80076

== ENCOUNTER 2022-12-05 15:01 | Outpatient (REF) | payer MEDICARE, SELFPAY ==
--- NOTE | 2022-12-05 15:15 | ECG_ITS ---
Test Reason : syncope Blood Pressure : / mmHG Vent. Rate : 068 BPM Atrial Rate : 068 BPM P-R Int : 144 ms QRS Dur : 098 ms QT Int : 432 ms P-R-T Axes : 071 076 041 degrees QTc Int : 459 ms Normal sinus rhythm Nonspecific ST and T wave abnormality Abnormal ECG No previous ECGs available Referred By: Shirley Ross Electronically Signed By:ANNIE GARNER MD
[2022-12-05 15:31] LABS: MANUAL DIFF FLAG NO
[2022-12-05 15:39] LABS: VBG HCO3 33 mmol/L (22-26); VBG pCO2 59 mmHg; VBG pH 7.35 (7.32-7.43); VBG pO2 41 mmHg; Venous Blood Gas Refer to POC result
[2022-12-05 15:50] LABS: Basophils Absolute Auto 0.1 X10*3/uL (0.0-0.2); Basophils Percent Auto 0.6 % (0-2); Eosinophils Absolute Auto 0.1 X10*3/uL (0.0-0.4); Hematocrit 44.1 % (37.0-47.0); Hemoglobin 14.3 g/dl (12.0-16.0); Imm Gran Abs Auto 0.03 X10*3/uL (0.00-0.03); Imm Gran Pct Auto 0.4 % (0.0-0.4); Lymphocytes Absolute Auto 1.3 X10*3/uL (1.2-4.9); Lymphocytes Percent Auto 15.2 % (20-40); Mean Corpuscular HGB Conc 32.4 g/dl (31.0-35.0); Mean Corpuscular Hemoglobin 29.4 pg (27.0-33.0); Mean Corpuscular Volume 90.7 fL (80.0-98.0); Mean Platelet Volume 10.2 fL (9.4-12.3); Monocytes Absolute Auto 0.9 X10*3/uL (0.1-1.2); Monocytes Percent Auto 10.8 % (2-11); Neutrophils Absolute Auto 5.9 x10*3/uL (2.0-8.3); Platelet Count 236 X10*3/uL (160-400); Red Blood Count 4.86 X10*6/uL (4.20-5.50); Red Cell Distribution Width 14.6 % (11.0-16.0); White Blood Count 8.2 X10*3/uL (4.8-10.8)
[2022-12-05 15:53] LABS: INTERNATIONAL NORM RATIO 0.8 (0.9-1.1); Prothrombin Time 10.1 SEC (11.1-13.3)
[2022-12-05 16:12] LABS: Anion Gap 14 (12-20); Blood Urea Nitrogen 24 mg/dL (9-16); Calcium 9.9 mg/dL (8.4-10.2); Carbon Dioxide 30 mmol/L (22-29); Chloride 103 mmol/L (96-108); Estimated Glomerular Filt Rate > 60; Glucose Random 79 mg/dL (60-115); Potassium 4.8 mmol/L (3.3-5.1); Sodium 142 mmol/L (135-145)
== END 2022-12-05 15:02 | disposition home or self-care (01) ==
LOC: HO.LAB 15:01
PROVIDERS: Visit Provider Nurse Practitioner
DX: G12.21 Amyotrophic lateral sclerosis (principal)
CPT/HCPCS: 36415; 80048; 82803; 85025; 85610; 93005

== ENCOUNTER 2023-09-14 09:01 | Outpatient (REF) | payer MEDICARE, SELFPAY ==
--- NOTE | ~2023-09-14 | US_ITS ---
EXAMINATION: US COMPLETE ABDOMEN WITH LIVER ELASTOGRAPHY CLINICAL INFORMATION: Primary biliary cirrhosis. COMPARISON: Abdominal ultrasound dated 03/02/2019. TECHNIQUE: Real-time imaging of the abdominal viscera. Noninvasive ultrasound liver fibrosis assessment is performed using Bjorn ElastPQ point quantification shear wave elastography (2D-SWE) with a C5-2 MHz transducer. Multiple elastography samples are obtained. FINDINGS: PANCREAS: Limited. The visualized pancreatic head and body are normal in appearance. The remainder of the pancreas is obscured from visualization by the overlying bowel gas. ABDOMINAL AORTA: The proximal, middle, and distal aortic segments are normal in caliber. There are atherosclerotic calcifications. INFERIOR VENA CAVA: Visualized portions are normal. LIVER: Normal. The liver demonstrates normal size, contour and coarse echogenicity. No focal lesion or intrahepatic biliary duct dilatation. The right lobe measures 16.5 cm in length. The left lobe measures 13.4 cm in length. Portal flow is towards the liver (hepatopetal). Shear wave liver elastography median stiffness is 1.55 m/s (reference: normal median stiffness is 1.3 m/s or less). IQR/median stiffness to assess sampling precision is 0.09 (reference: good quality data set is IQR/median stiffness of 0.15 or less). GALLBLADDER: Normal. The gallbladder is physiologically distended without evidence of stones, sludge, polyps, wall thickening or pericholecystic fluid. COMMON BILE DUCT: Normal in caliber measuring 0.2 cm in diameter. RIGHT KIDNEY: At the interpolar aspect, a 2.0 cm benign, simple cyst is seen, for which no imaging follow-up is recommended. No hydronephrosis. No renal calculi or focal parenchymal lesions. The kidney measures 12.6 cm in maximum dimension. LEFT KIDNEY: Normal. No hydronephrosis. No renal calculi or focal parenchymal lesions. The kidney measures 13.0 cm in maximum dimension. SPLEEN: Normal. The spleen measures 8.9 cm in maximum dimension. FREE FLUID: None. US/US abdomen comp w elastography IMPRESSION: 1. There is coarse hepatic echotexture, consistent with fatty infiltration or hepatocellular disease. Please correlate clinically. No focal hepatic mass or intrahepatic biliary dilatation is seen. 2. Liver elastography: In the absence of other known clinical signs, measurements rule out compensated advanced chronic liver disease. If there are known clinical signs, further testing may be needed for confirmation. 3. Technically limited ultrasound examination of the pancreas. REFERENCE: Society of [employer]iologists in Ultrasound Liver Stiffness Thresholds (2020): LIVER STIFFNESS THRESHOLDS: *Liver Stiffness equal or less than 1.3 m/s: High probability of being normal. *Liver Stiffness less than 1.7 m/s: In the absence of other known clinical signs, rules out compensated advanced chronic liver disease. *Liver Stiffness 1.7-2.1 m/s: Suggestive of compensated advanced chronic liver disease but need further test for confirmation. *Liver Stiffness over 2.1 m/s: Rules in compensated advanced chronic liver disease. *Liver Stiffness over 2.4 m/s: Suggestive of clinically significant portal hypertension. QUALITY OF DATA SET: *IQR/Median value equal or less than 0.15 implies a quality data set. *IQR/Median value over 0.15 implies a poor quality data set. SIGNIFICANT CHANGE FROM PRIOR EXAM: Significant change if liver stiffness measurement is 10% or greater from prior exam. OTHER CONSIDERATIONS: The stage of liver fibrosis may be overestimated in the setting of acute hepatitis, liver inflammation, elevated liver function tests, hepatic vascular congestion, obstructive cholestasis, non-fasting state, and infiltrative diseases such as amyloidosis and lymphoma. In some patients with NAFLD, the liver stiffness thresholds for compensated advanced chronic liver disease may be lower. In causes other than viral hepatitis and NAFLD, liver stiffness thresholds are not well established.
== END 2023-09-14 09:02 | disposition home or self-care (01) ==
LOC: HO.US 09:01
PROVIDERS: Visit Provider Internal Medicine
DX: K74.3 Primary biliary cirrhosis (principal)
CPT/HCPCS: 76700; 76981